=== PATIENT | female | born 2000 | race Caucasian/White ===

== ENCOUNTER → 2024-09-04 13:24 | Outpatient (CLI) | payer OTHER, SELFPAY ==
--- NOTE | 2024-09-04 13:26 | DI.US.S_ITS ---
PROCEDURE: US OB >= 14 WEEKS FETUS INDICATIONS: ANATOMY OUTSIDE/PRIOR DATING DATA: Last menstrual period (LMP): 04/14/2024 LMP-based estimated date of delivery (TUYET): 01/19/2025 First dating scan (date and location): 09/04/2024 Estimated date of delivery (TUYET) from first dating scan: 01/21/2025 TECHNIQUE: Real-time scanning was performed of the fetus, with image documentation and biometric measurements. Endovaginal scanning: Not performed COMPARISON: None. FINDINGS: General: A single living intrauterine gestation is present. Presentation: Transverse with head towards maternal left side. Placenta: Placental position is anterior, without previa. Amniotic fluid index: 20.1 cm, normal range is 5-24 cm. Single deepest vertical pocket is 7.3 cm. heart rate: 153 beats per minute. Maternal cervical canal: Closed and measures 5.4 cm in length. biometrics: Biparietal diameter: 4.7 cm, 20 weeks, 2 days. Head circumference: 17.2 cm, 19 weeks, 5 days. Abdominal circumference: 15.3 cm, 20 weeks, 3 days. Femur length: 3.3 cm, 20 weeks, 1 day. Clinically estimated gestational age: 20 weeks, 3 days. Composite gestational age from present scan: 20 weeks, 1 day. Estimated weight and percentile: 343 grams, 36 percent. Anatomic survey: Neuro: Ventricles are non-dilated at less than 10 mm. Cisterna magna is normal at 3-11 mm. Cerebellum is normal in size and morphology. Nuchal skin fold: Normal at less than 6 mm between 14-21 weeks gestational age. Face: Nose and lips, facial profile are normal. Spine: No evidence for spina bifida. Heart: 4-chambered heart is present, with normal ventricular outflow tracts. Diaphragm: Diaphragm is intact. Stomach: Left-sided stomach is present. Kidneys: No hydronephrosis. Normal is less than 5 mm in 2nd trimester, less than 7 mm in 3rd trimester. Cord: Suggestion of marginal marginal placental cord insertion approximately 1.4 cm from the superior edge of placenta. Bladder: Normal in size. Extremities: All 4 extremities identified. Avascular thin hyperechoic linear structure is noted at the superior aspect of the uterus versus superior post signed a and may represent uterine synechia. IMPRESSION: 1. Single live intrauterine gestation with fetus in transverse presentation. heart rate is 153 beats per min . Normal amount of amniotic fluid with SABINO measures 20.1 cm. Cervix is closed and measures 5.4 cm in length. 2. Estimated weight is at 36 percentile. 3. Suggestion of marginal placental cord insertion approximately 1.4 cm from superior edge of placenta. 4. Finding is concerning for uterine synechia as above. We strive to produce accurate, complete, and clear reports of imaging services. To assist us in improving patient care, this report was composed using standard report templates and voice recognition software. Therefore, it may contain abnormal punctuation, insertions and/or omissions. Occasional wrong-word or sound-alike substitutions may occur. Though we review the report and make efforts to correct it, we do recommend that the report be read carefully in proper context to recognize any text inaccuracies. Dictated by: Orlando Lacy M.D. on 09/05/2024 at 8:49 Approved by: Orlando Lacy M.D. on 09/05/2024 at 8:53
== END ==
PROVIDERS: Referring Provider Family Medicine; Visit Provider Family Medicine
DX: Z34.82 Encounter for supervision of other normal pregnancy, second trimester (principal); Z3A.20 20 weeks gestation of pregnancy
CPT/HCPCS: 76811

== ENCOUNTER → 2024-10-25 15:50 | Outpatient (CLI) | payer OTHER, SELFPAY ==
[2024-10-25 17:06] LABS: Add Manual Diff / Slide Review NO; Basophils Absolute Auto 0 /uL (0-100); Basophils Percent Auto 0.1 % (0-2); Eosinophils Absolute Auto 0 /uL (0-450); Eosinophils Percent Auto 0.1 % (2-4); Hematocrit 33.2 % (36-46); Hemoglobin 11.5 g/dL (12.0-16.0); Lymphocytes Absolute Auto 3100 /uL (1100-4500); Mean Corpuscular HGB Conc 34.7 % (30-36); Mean Corpuscular Hemoglobin 28.6 PG (26-34); Mean Corpuscular Volume 82.4 fL (80-100); Monocytes Absolute Auto 400 /uL (0-900); Monocytes Percent Auto 4.5 % (3-14); Neutrophils Absolute Auto 6400 /uL (1500-7000); Neutrophils Percent Auto 64.3 % (50-75); Platelet Count 289 X10^3/uL (150-400); Red Blood Cell Count 4.03 X10^6/uL (4.0-5.2); Red Cell Distribution Width 14.2 % (11.6-14.8); White Blood Cell Count 9.9 X10^3/uL (4.5-11.0)
[2024-10-25 17:15] LABS: Hemoglobin A1C% w Est Avg Glu 4.3 % (4.0-6.0)
[2024-10-25 17:20] LABS: Bilirubin Urine UA NEGATIVE (NEGATIVE); Glucose Urine UA NEGATIVE (Negative); Ketones Urine UA TRACE (NEGATIVE); Leukocyte Esterase Urine UA 1+ (NEGATIVE); Nitrite Urine UA NEGATIVE (Negative); Occult Blood Urine UA NEGATIVE (Negative); Protein Urine UA TRACE (Negative); Specific Gravity Urine UA >=1.030 (1.000-1.035)
[2024-10-25 17:23] LABS: Appearance Urine UA SL CLOUDY; Color Urine UA ORANGE
[2024-10-25 17:25] LABS: Urine Volume 10mL (spun)
[2024-10-25 17:27] LABS: Bacteria Urine Many (>30); Culture Indicated Urine Cult Not Indicated; Mucus Urine 2+ (Negative); RBC Urine None Seen (0-5/HPF); Squamous Epithelial Cell Urine 0-1 /HPF (0-5/HPF); WBC Urine 10-30/HPF (0-5/HPF)
[2024-10-25 18:32] LABS: GTT (PREG) 1 Hour PP 50gm Dose 104 mg/dL (76-139)
[2024-10-26 17:03] LABS: Hepatitis B Surface Antigen NEGATIVE s/c (NEGATIVE); Rubella Antibody IgG 6.3 IU/mL (>15)
[2024-10-26 17:20] LABS: HIV 1 & 2 Ab/Ag 4th Gen Combo NEGATIVE (NEGATIVE); Hep C Virus Ab w/Reflex Quant NEGATIVE s/c (NEGATIVE)
[2024-10-27 10:08] LABS: Varicella IgG Antibody Reactive (Non Reactive)
[2024-10-29 03:08] LABS: RPR Screen Non Reactive (Non Reactive)
== END ==
PROVIDERS: Referring Provider Family Medicine; Visit Provider Family Medicine
DX: O99.210 Obesity complicating pregnancy, unspecified trimester (principal)
CPT/HCPCS: 36415; 80055; 81003; 81015; 82950; 83036; 86787; 86803; 86850; 86900; 86901; 87086; 87389

== ENCOUNTER → 2024-11-13 16:44 | Outpatient (CLI) | payer OTHER, SELFPAY ==
--- NOTE | 2024-11-13 16:45 | DI.US.S_ITS ---
PROCEDURE: US OB LIMITED INDICATIONS: measuring large for dates OUTSIDE/PRIOR DATING DATA: Working TUYET is 01/19/2025 TECHNIQUE: Real-time scanning was performed of the fetus, with image documentation and biometric measurements. COMPARISON: [facility], OB >= 14 WEEKS FETUS, 09/04/2024, 13:35. FINDINGS: General: A single living intrauterine gestation is present. Presentation: Vertex. Placenta: Placental position is anterior , without previa. Amniotic fluid index: 14.1 cm, normal range is 5-24 cm. Single deepest vertical pocket is 7.6 cm. heart rate: 119 beats per minute. Maternal cervical canal: 4.3 cm long. Normal lower limit is 2.5 cm. biometrics: Biparietal diameter: 7.6 cm, 30 weeks and 4 days Head circumference: 27.3 cm, 29 weeks and 5 days Abdominal circumference: 26.5 cm, 30 weeks and 4 days Femur length: 5.6 cm, 29 weeks and 4 days Clinically estimated gestational age: 30 weeks and 3 days Composite gestational age from present scan: 30 weeks and 1 day Estimated weight and percentile: 1532 g, 30% Other: Not applicable. IMPRESSION: EFW normal at the 30th percentile. Normal SABINO. Vertex presentation Dictated by: Reilly Perez M.D. on 11/14/2024 at 11:10 Approved by: Reilly Perez M.D. on 11/14/2024 at 11:12
[2024-11-13 18:23] LABS: Creatinine Urine Random 74.31 mg/dL; Protein (Total) Urine Random 7 mg/dL (0-12); Protein Creatinine Ratio Urine 0.09 GRAM/24H
== END ==
PROVIDERS: Referring Provider Family Medicine; Visit Provider Family Medicine
DX: O36.63X0 Maternal care for excessive fetal growth, third trimester, not applicable or unspecified (principal); R80.9 Proteinuria, unspecified; Z3A.30 30 weeks gestation of pregnancy
CPT/HCPCS: 76815; 82570; 84156

== ENCOUNTER → 2024-12-25 14:34 | Outpatient (CLI) | payer OTHER, SELFPAY ==
[2024-12-26 14:33] LABS: Strep Grp B PCR NEG for Grp B Strep
== END ==
PROVIDERS: Visit Provider Family Medicine
DX: Z36.85 Encounter for antenatal screening for Streptococcus B (principal)
CPT/HCPCS: 87653

== ENCOUNTER 2025-01-26 22:53 | Inpatient (IN) | payer OTHER, SELFPAY ==
[2025-01-27 00:13] LABS: Add Manual Diff / Slide Review NO; Basophils Absolute Auto 100 /uL (0-100); Basophils Percent Auto 0.5 % (0-2); Eosinophils Absolute Auto 0 /uL (0-450); Eosinophils Percent Auto 0.1 % (2-4); Hematocrit 32.7 % (36-46); Hemoglobin 10.6 g/dL (12.0-16.0); Lymphocytes Absolute Auto 4200 /uL (1100-4500); Lymphocytes Percent Auto 33.3 % (25-40); Mean Corpuscular HGB Conc 32.5 % (30-36); Mean Corpuscular Hemoglobin 25.9 PG (26-34); Mean Corpuscular Volume 79.8 fL (80-100); Monocytes Absolute Auto 500 /uL (0-900); Monocytes Percent Auto 4.3 % (3-14); Neutrophils Absolute Auto 7900 /uL (1500-7000); Neutrophils Percent Auto 61.8 % (50-75); Platelet Count 314 X10^3/uL (150-400); White Blood Cell Count 12.7 X10^3/uL (4.5-11.0)
[2025-01-27] MEDS: miSOPROStoL 25 MCG TABLET PO (00:51)
[2025-01-27] MEDS: hydrOXYzine HCL 25 MG TABLET PO (03:57)
--- NOTE | 2025-01-27 07:34 | P.PCN_ITS ---
[facility] <Ericka Shearer CRNA - Last Filed: 01/27/25 12:36> Pre-procedure Procedure: Continuous Lumbar Epidural for L&D Attending OB provider: Teresa Stanton PMH/ROS narrative: presents in spontaneous labor requesting epidural for labor pain. PMH + for morbid obesity and current tobacco use. PSH/Anesthesia history narrative: Previous vaginal delivery with epidural anesthesia. Epidural placement took 3 [address] first catheter which was ineffective. Eventually second catheter was placed and was effective. No history of general anesthesia. Exam narrative: See pre-anesthesia evaluation form. ASA Class: III Labs: Hct 32.7 % (36-46) L 01/26/25 23:35 Plt Count 314 X10^3/uL (150-400) 01/26/25 23:35 Medications: Current Medications Generic Name Dose Route Start Last Admin Trade Name Freq PRN Reason Stop Dose Admin Butorphanol Tartrate 0.5 mg 01/27/25 07:29 Butorphanol 1 Mg/Ml Vial IV 01/28/25 07:29 Q3HR PRN PRURITUS Calcium Carbonate 1,000 mg 01/26/25 23:54 Calcium Carbonate 500 Mg Tab PO Q2HR PRN Dyspepsia Carboprost Tromethamine 250 mcg 01/26/25 23:54 Carboprost 250 Mcg/Ml Ampul IM Q90M PRN Bleeding Diphenhydramine HCl 25 mg 01/27/25 07:29 Diphenhydramine 50 Mg/Ml Vial IV 01/28/25 07:29 Q3HR PRN PRURITUS Diphenhydramine HCl 25 mg 01/27/25 07:29 Diphenhydramine 50 Mg/Ml Vial IV Q10M PRN Pruritis Ephedrine Sulfate 10 mg 01/27/25 07:29 Ephedrine 50 Mg/Ml Vial IV Q5M PRN Blood pressure decrease more than 20% of baseline. Fentanyl 100 mcg 01/26/25 23:54 Fentanyl 100 Mcg/2 Ml Inj IV Q1H PRN Pain, Severe (7-10) Hydroxyzine HCl 25 mg 01/27/25 00:15 01/27/25 03:57 Hydroxyzine Hcl 25 Mg Tablet PO 25 mg Q4H JOHN Administration Oxytocin/Lactated Ringer's 30 unit in 500 mls @ 200 mls/hr 01/26/25 23:54 Oxytocin Premix IV CONT PRN Bleeding Protocol Tranexamic Acid 1,000 mg/ 100 mls @ 600 mls/hr 01/26/25 23:54 Sodium Chloride IV NOW PRN Bleeding Oxytocin/Lactated Ringer's 30 unit in 500 mls @ 2 mls/hr 01/26/25 23:45 Oxytocin Premix IV TITRATE JOHN Protocol 2 MILLIUNIT/MIN Lactated Ringer's 1,000 mls @ 100 mls/hr 01/26/25 23:45 Lactated Ringers IV 01/27/25 09:44 CONT JOHN FENT 2MCG/ML BUPIV 0.125% EPI 200 mcg in 100 mls @ 8 mls/hr 01/27/25 07:10 Fentanyl/Bupiv/Ns 2mcg/Ml - 0.125% EPIDURAL CONT JOHN Lidocaine HCl 20 ml 01/26/25 23:54 Lidocaine 1% 20 Ml INJ INTRA-OP PRN Post Delivery Methylergonovine Maleate 0.2 mg 01/26/25 23:54 Methylergonovine 0.2 Mg Tablet PO Q6HR PRN Heavy Bleeding Methylergonovine Maleate 0.2 mg 01/26/25 23:54 Methylergonovine 0.2 Mg/Ml Vial IM NOW PRN Bleeding Metoclopramide HCl 10 mg 01/27/25 07:29 Metoclopramide 10 Mg/2 Ml Inj IV 01/28/25 07:29 Q4H PRN Nausea Mineral Oil 30 ml 01/26/25 23:54 Mineral Oil 30 Ml Udc TOP PRN PRN Version Misoprostol 800 mcg 01/26/25 23:54 Misoprostol 200 Mcg Tablet LA NOW PRN Bleeding Misoprostol 400 mcg 01/26/25 23:54 Misoprostol 200 Mcg Tablet SL NOW PRN Bleeding Nalbuphine HCl 5 mg 01/27/25 07:29 Nalbuphine 20 Mg/Ml Ampul IV Q6H PRN PRURITIS Nalbuphine HCl 2.5 mg 01/27/25 07:29 Nalbuphine 20 Mg/Ml Ampul IV Q10M PRN Pruritis Naloxone HCl 0.2 mg 01/26/25 23:54 Naloxone 0.4 Mg/Ml Vial IV Q2MIN PRN Opiate Reversal Naloxone HCl 0.4 mg 01/27/25 07:29 Naloxone 0.4 Mg/Ml Vial IV Q2MIN PRN Opiate Reversal Naloxone HCl 0.1 mg 01/27/25 07:29 Naloxone 0.4 Mg/Ml Vial IV 01/27/25 07:30 NOW ONE Ondansetron HCl 4 mg 01/26/25 23:54 Ondansetron 4 Mg/2 Ml Inj IV Q4HR PRN Nausea And Vomiting Ondansetron HCl 4 mg 01/27/25 07:29 Ondansetron 4 Mg/2 Ml Inj IV 01/28/25 07:29 Q6HR PRN Nausea Oxytocin 10 unit 01/26/25 23:54 Oxytocin 10 Unit/Ml Vial IM NOW PRN Bleeding Allergies: Allergies Allergy/AdvReac Type Severity Reaction Status Date / Time No Known Drug Allergies Allergy Unverified 01/22/25 10:28 Procedure Insertion date: 01/27/25 Insertion time: 06:58 Prep/Local: 1% lidocaine (8mL to L3/4 interspace (CHG to back for skin prep)) Interspace: L3/4 Patient position: sitting Needle: 18 gauge Ameya Loss of resistance with: saline VELIA at (cm): 7 (6.5) Catheter placed at SKIN (cm): 10 (catheter inadvertently slipped back when pulling out [place] :( However it was tested with lido 2% and pt achieved numb legs) Catheter in SPACE (cm): 3 (3.5) Sensory level: T10 Insertion: No CSF, No Blood, No Paresthesia with insertion, No Paresthesia with injection and No Test dose reaction Initial Medications TEST DOSE time: 06:59 TEST DOSE: 1.5% lidocaine with epinephrine 1:200k (mL): 3 BOLUS DOSE time: 07:02 BOLUS DOSE (mL): 5 BOLUS DOSE med: other (5mL 2% lidocaine - pt reported numbness in legs and drastic reduction in contraction pain. Followed by 5mL infusate bolus at 0705) Infusion INFUSION: 0.125% bupivacaine and with fentanyl 2 mcg/mL Initial rate (mL/hr): 8 Post-procedure Anesthesia date START: 01/27/25 Anesthesia time START: 06:49 <Golden Donnelly, DO - Last Filed: 01/27/25 17:01> Infusion Subsequent interventions: 1318: 5mL 0.25% bupiv, rate to 10mL/h - 1546: Post-procedure Anesthesia date END: 01/27/25 Anesthesia time END: 16:01 Post-procedure Anesthesia Assessment: Yes CV function: HR/BP stable, Yes Resp function: RR/sat/airway adequate, Yes Post-op hydration adequate, Yes Pain c ontrol adequate, Yes Nausea & vomiting absent, Yes Temperature > 36 C, Yes Mental status appropriate and No Anesthesia complications
--- NOTE | 2025-01-27 07:59 | P.HPOB_ITS ---
OB HPI Date/Time Date of admission: 01/26/25 Date Patient Seen: 01/27/25 Time Patient Seen: 07:35 History of Present Condition Chief complaint: labor TUYET Calculator 2 Estimated Delivery Date Method Current WG Current Estimate 01/19/25 LMP (Certain) 41w 1d Estimated Gestational Age (weeks): 41w1d : 2 Para: 1 Narrative: 24 yo presented last night at 41w0d for mIOL. has been complicated by baseline BMI 43, current BMI of 47. She was also found to marginal cord insertion. She did hemorrhage requiring 2 units of RBCs in her 1st delivery due to retained placenta. care: good care Dating criteria OB: based on LMP only Ultrasounds: abnormal US findings (marginal cord insertion with uterine synechia ) Obstetrical complications: none Medical complications OB: none Indications Indication for induction OB: post dates Preadmission Labs Last OB Lab Results: 2 Blood Type A Positive 01/26/25, 23:35 Antibody Screen Negative 01/26/25, 23:35 Hct, (36-46) 32.7 % L 01/26/25, 23:35 Hgb, (12.0-16.0) 10.6 g/dL L 01/26/25, 23:35 Hep Bs Antigen, (NEGATIVE) Negative s/c 10/25/24, 15: 54 Hepatitis C Antibody, (NEGATIVE) Negative s/c 5, 15:54 Rubella Antibody, (>15) 6.3 IU/mL L 10/25/24, 15:54 VZV IgG Antibody, (Non Reactive) Reactive 5, 15:54 Glucose 1 Hr 50 gm, (76-139) 104 mg/dL 10/25/24, 1 6:58 Hemoglobin A1c, (4.0-6.0) 4.3 % 10/25/24, 15:5 4 Group B Strep (PCR) Neg for grp b strep 12/25/24, 11:00 Glucose Tolerance Testin hr (104) Prior (ies) Past Pregnancies Del. Date GA/Weeks Labor Lgth Wt Sex Route Outcome Anesthesia Place Delv Breastfeed Preg Comp Name 09/24/22 39.6 8 lb 1 oz Male vaginal live - full ter m epidural [facility] [place] 6 months hemorrhage [place] Delivery Date: 09/24/22 Last Updated by: Amanda Marie RN elective induction Hx # Term Pregnancies: 1 Hx # Pregnancies: 0 Number of Living Children: 1 Multiple births: 0 Spontaneous abortions: 0 Ectopic pregnancies: 0 Elective abortions: 0 Evaluation Evaluation Baseline heart rate: 140 Variability: Moderate (6-25) monitor accelerations: Present Monitor Decelerations: Absent Contraction Frequency (minutes): 3 Category of Tracing: Reactive Status: Category l Dilation (cm): 5 Effacement (%): 70 Dilation: >/=5 cm Effacement: 60-70% station: -2 Position of cervix: anterior Consistency: soft Brody score: 10 Comments: AROM at 07:49 wtih clear fluid, small volume PFSH Medical History (Updated 10/24/24 @ 11:30 by Teresa Stanton MD) Large for dates affecting management of mother hemorrhage Choking due to foreign body Surgical History (Updated 08/22/24 @ 10:12 by Amanda Marie RN) No pertinent past surgical history Family History (Updated 08/22/24 @ 10:26 by Amanda Marie RN) Father Pre-diabetes Hypertension Mother Hypothyroidism Sister Hypothyroidism Grandmother COPD (chronic obstructive pulmonary disease) Smoker Grandfather Pancreatic cancer Brother ADHD Grandmother Heart disease Social History marital status: number of children: 1 household members: spouse and children lives independently: Yes caregiver/support person: Yes housing: apartment pets and animals: No education level: high school occupational status: unemployed current occupational exposures/hazards: No special westley needs: No travel history: recent (domestic only) seatbelt use: always water heater temp set < 120 deg: Yes working smoke detector in home: Yes fire extinguisher in home: No carbon monox detector in home: Yes firearms in home: No do you feel safe at home: Yes Smoking Status: Current every day smoker Tobacco: How many years used: 1 second hand exposure: Yes ( also vapes) alcohol intake: former (rarely when not ) substance use type: marijuana (not while /) during the past year weight has: remained stable well-balanced diet: about half the time daily servings fruits/ve-4 caffeine: Yes (occasional soft drink) Type(s) of exercise: walking Meds Home Medications and Allergies Home Medications ?Medication ?Instructions ?Recorded ?Confirmed ?Type vitamin-ferrous sulfate tab PO 08/22/2401/22 History 27 mg iron-folic acid 0.8 mg tablet Allergies Allergy/AdvReac Type Severity Reaction Status Date / Time No Known Drug Allergies Allergy Unverified 01/22/25 10:28 Review of Systems Review of Systems Narrative: + FM pain controlled with epidural + contractions OB Exam Vital signs Blood Pressure: 101/51 Pulse Rate: 107 Narrative Exam Narrative: GEN: NAD, not feeling contractions Pulm: breathing comfortably on RA ABd: gravid MSK: laying in bed, moving all extremities neuro: non-focal : nml external genitalia, 5/80/-2 with bulging bag, AROM completed with small volume clear fluid Objective Labs 01/26/25 23:35 Labs: Laboratory Results - last 24 hr 01/26/25 23:35 WBC 12.7 H RBC 4.10 Hgb 10.6 L Hct 32.7 L MCV 79.8 L MCH 25.9 L MCHC 32.5 RDW 15.0 H Plt Count 314 Neut % (Auto) 61.8 Lymph % (Auto) 33.3 [place] % (Auto) 4.3 Eos % (Auto) 0.1 L Baso % (Auto) 0.5 Neut # (Auto) 7900 H Lymph # (Auto) 4200 [place] # (Auto) 500 Eos # (Auto) 0 Baso # (Auto) 100 Blood Type A Positive Antibody Screen Negative Assessment and Plan Assessment and Plan Assessment and Plan narrative: 24 yo presented last night [id number] for mIOL. # SIUP at term: - admit to LD - continuous monitoring, FHT reassuring and largely Cat 1 - S/p ripening with 1 dose 25mcg of cytotec, now comfortable with epidural - AROM at 07:49 wtih clear fluid, small volume - Anesthesia consult, epidural in place - CBC, TS - cephalic by bedside US - GBS negative # Hx of PPH: # marginal cord insertion: - PPPH meds at bedside - TS on admission Time-Based Coding :: [TOTAL MINUTES] spent with patient and on the chart (including review of chart, obtaining history, exam, reviewing outside data, placing orders, documenting exam and treatment plan, and counseling patient) on [DATE].
[2025-01-27] MEDS: LACTATED RINGERS 1,000 ML 100 ML IV ×3 (08:36→16:45)
[2025-01-27] MEDS: ePHEDrine 50 MG/ML VIAL 10 MG IV ×3 (09:11→09:27)
[2025-01-27 10:15] VITALS: BP 101/51; PULSE 107
[2025-01-27] MEDS: OXYTOCIN PREMIX 30 UNIT/500 ML PLAST..BAG IV (11:45)
--- NOTE | 2025-01-27 13:43 | PM.OBPNLAB ---
Date/Time Date Patient Seen: 01/27/25 Time Patient Seen: 13:00 Pain Control Pain control: epidural Pelvic Exam Dilation (cm): 8 Effacement (%): 80 station: -2 Contractions Contractions on admission: irregular Monitor mode: External Pitocin rate (mU/min): 4 Contraction pattern: Regular Status status: Category l Heart Rate Baseline: 135 Monitor Accelerations: Present Monitor Decelerations: Episodic and Variable Monitor Variability: Moderate Assessment and Plan Assessment: induction ongoing Plan: other (start amnioinfusion ) Comments: 24 yo admitted at 41w1d for mIOL. After ROM, FHT began showing intermittent variables and occassional late decelerations so amnioinfusion was started at 13:08 # Post-dates - Continue pitocin titration as able - amnioinfusion was started at 13:08 - continue pitocin titration as FHT allows - Continuous FHT - ROM at 07:49 this AM # Hx of PPH: # marginal cord insertion: - PPH meds at bedside - TS on admission
[2025-01-27] MEDS: FENT 2MCG/ML BUPIV 0.125% EPI 200 MCG/100 ML PLAST..BAG 8 MCG EPIDURAL (14:24)
[2025-01-27] MEDS: OXYTOCIN PREMIX 30 UNIT/500 ML PLAST..BAG 999 UNIT IV (15:50)
[2025-01-27] MEDS: miSOPROStoL 200 MCG TABLET 800 MCG PR (15:52)
[2025-01-27] MEDS: TRANEXAMIC ACID 1,000 MG in SODIUM CHLORIDE 0.9% 100 ML 600 MG IV (15:54)
--- NOTE | 2025-01-27 16:26 | P.PCNOB_ITS ---
Events: Meconium Stained Fluid Labor & Delivery Delivery date: 01/27/25 Delivery Time: 15:46 Intrapartal Events: Deceleration (intermittent variable decelerations ) Cervical ripening method: per misoprostal protocol Induction method: AROM Delivery augmentation: pitocin Delivery monitor: external FHT and internal uterine Route of delivery: L&D Laceration Description: Perineal - 1st Degree and Labial (bilateral labial ) Delivery repair: vicryl (3-0 Vicryl on R labia ) Estimated blood loss (mL): 800 Quantitative Blood Loss: 764 Anesthesia Type: Epidural Narrative: PROCEDURE: 24 yo at 41w0d who presented at 41w1d for mIOL for post-dates and was admitted to Labor and Delivery. She was given one dose of PO cytotoec with development of contractions. She requested an epidural and was more comfortable by the AM. ROM occured at 07:49 with small volume clear fluid. soon after fluid became meconium stained. After ROM, she began showing intermittent variables and occassional late decelerations so amnioinfusion was started at 13:08. FHT improved with amnioinfusion. The patient progressed through the 2nd stage and delivered a viable male infant with APGARs 8/9 at 15:46 via out of RUDOLPH. The cord was cut and clamped after 2 min delay. Pitocin was started after delivery of . The placenta delivered with gentle cord traction, and appeared complete but did have a marginal cord insertion. With delivery of placenta there was brisk bleeding. 1g TXA was administered as well at 1000mcg of Cytotec while fundal massage was performed. Bleeding slowed to a more typical rate. The perineum and vagina were inspected with bilateral labial lacerations, R side requiring repair and left side hemostatic, as well as a shallow 1st degree perineal laceration which was hemostatic and did not require repair. Needle and sponge counts were correct.? The vagina was inspected and no items were left in situ. PREPROCEDURE DIAGNOSIS: Intrauterine at 41w1d Marginal cord insertion GBS negative RH positive rubella non-immune Obesity in , BMI 47 POSTPROCEDURE DIAGNOSIS: Intrauterine at 41w1d, delivered Same as preprocedure [place] Baby Brody: Infant gender: Male Presentation: vertex Position: Left Occiput Anterior Placenta delivery description: Spontaneous Cord Vessel Description: 3 Vessels score (1 min): 8 score (5 min): 9 Plan for aftercare: Routine care
[2025-01-27] MEDS: METHYLERGONOVINE 0.2 MG/ML VIAL IM (16:50)
[2025-01-27] MEDS: DERMOPLAST SPRAY 20% 60 ML 1 SPRAY TOP (18:49)
[2025-01-27] MEDS: ACETAMINOPHEN 325 MG TABLET 650 MG PO (18:49)
[2025-01-27] MEDS: WITCH HAZEL/GLYCERIN PADS 1 EACH TOP (18:49)
[2025-01-28] MEDS: MAGNESIUM HYDROXIDE 30 ML UDC PO (02:37)
[2025-01-28] MEDS: ACETAMINOPHEN 325 MG TABLET 650 MG PO ×2 (02:37→08:18)
[2025-01-28] MEDS: IBUPROFEN 600 MG TABLET PO ×2 (02:38→08:19)
--- NOTE | 2025-01-28 07:32 | PM.OBDS.1 ---
Discharge Providers Provider Date of admission: 01/26/25 22:53 Discharge Date: 01/28/25 Primary care physician: Lani SHAHID Provider Consults: 01/26/25 23:54 Consult to Anesthesiology Urgent Comment: Consulting Provider: Ericka Shearer Reason for consultation: Epidural 01/27/25 16:40 Consult to Diesel Electrician Routine Comment: Discharge provider: Teresa Stanton MD Summary Hospital Course Date Patient Seen: 01/28/25 Time Patient Seen: 07:33 Hospital Course: 24 yo at 41w0d who presented at 41w1d for mIOL for post-dates and was admitted to Labor and Delivery. She was given one dose of PO cytotoec with development of contractions. She requested an epidural and was more comfortable by the AM. ROM occured at 07:49 with small volume clear fluid. soon after fluid became meconium stained. After ROM, she began showing intermittent variables and occassional late decelerations so amnioinfusion was started at 13:08. FHT improved with amnioinfusion. The patient progressed through the 2nd stage and delivered a viable male with APGARs 8/9 at 15:46 via out of RUDOLPH. The cord was cut and clamped after 2 min delay. Pitocin was started after delivery of infant. The placenta delivered with gentle cord traction, and appeared complete but did have a marginal cord insertion. With delivery of placenta there was brisk bleeding. 1g TXA was administered as well at 1000mcg of Cytotec while fundal massage was performed. Bleeding slowed to a more typical rate. The perineum and vagina were inspected with bilateral labial lacerations, R side requiring repair and left side hemostatic, as well as a shallow 1st degree perineal laceration which was hemostatic and did not require repair. During recorvery she had another large gush of blood and was given methergine as well. Total blood loss to this point is 910mL she is doing well, well. Pain is well controlled and bleeding has slowed. Peripartum Data Laceration Description: Perineal - 1st Degree and Labial complications: none Status at Discharge Cognitive/behavioral status at discharge: oriented Functional status at discharge: independent ambulation Overall status at discharge: patient is back to baseline Time Spent with Patient Time attestation: Total time spent providing and/or coordinating discharge services: Time spent: Less than 30 minutes Objective Labs 01/26/25 23:35 Exam Narrative Exam Narrative: Gen: well appearing but tired CV: Warm and well perfused Pulm: breathing comfortably on RA ABD: non-tender MSK: stable edema Discharge Plan Discharge Plan Patient Disposition: Home Discharge orders & Medications Prescriptions: Continued vit-ferrous sulfat-FA 27 mg iron- 0.8 mg tablet PO Follow up/Referrals: ProviderLani [Primary Care Provider, Family Practice] Visit Report/Discharge Packet Stand Alone Forms: Patient Portal/API, Stroke Signs & Symptoms Discharge Data Primary Care Provider: Lani Guadalupe
[2025-01-28 10:39] LABS: Add Manual Diff / Slide Review NO; Basophils Absolute Auto 0 /uL (0-100); Basophils Percent Auto 0.2 % (0-2); Eosinophils Absolute Auto 0 /uL (0-450); Eosinophils Percent Auto 0.3 % (2-4); Hematocrit 26.9 % (36-46); Lymphocytes Absolute Auto 4200 /uL (1100-4500); Mean Corpuscular HGB Conc 33.4 % (30-36); Mean Corpuscular Hemoglobin 26.6 PG (26-34); Mean Corpuscular Volume 79.8 fL (80-100); Monocytes Absolute Auto 700 /uL (0-900); Neutrophils Absolute Auto 8700 /uL (1500-7000); Neutrophils Percent Auto 63.5 % (50-75); Platelet Count 238 X10^3/uL (150-400); Red Blood Cell Count 3.36 X10^6/uL (4.0-5.2); Red Cell Distribution Width 14.7 % (11.6-14.8); White Blood Cell Count 13.7 X10^3/uL (4.5-11.0)
== END 2025-01-28 17:00 | disposition home or self-care (01) | DRG 807 ==
PROVIDERS: Admitting Provider Family Medicine; Referring Provider Family Medicine; Visit Provider Family Medicine
DX: O48.0 Post-term pregnancy (principal); Z37.0 Single live birth; Z3A.41 41 weeks gestation of pregnancy; O99.334 Smoking (tobacco) complicating childbirth; O76 Abnormality in fetal heart rate and rhythm complicating labor and delivery; O70.0 First degree perineal laceration during delivery
CPT/HCPCS: 36415; 59050; 59200; 59400; 85025; 86850; 86900; 86901; A9270; G0379; J2210; J2590; S0191